=== PATIENT | female | born 1945 | race Caucasian/White ===

== ENCOUNTER 2016-11-10 10:36 | Emergency (ER) | payer OTHER ==
[2016-11-10 10:51] VITALS: BP 179/89; PULSE 61; TEMP 98.9; BMI 32.1
--- NOTE | 2016-11-10 11:47 | PDOC ---
History of Present Illness - General Chief Complaint: Injury Stated Complaint: FALL, RT ARM PAIN Time Seen by Provider: 11/10/16 11:38 History Source: Patient - History of Present Illness Initial Comments: 11/10/16 12:19 Chief complaint: Arm injury Patient is 70-year-old female with a history of elevated cholesterol who states she tripped and fell on a bus on Wednesday. She has pain mostly to the right upper arm. When asked further she states she has pain to the right ring finger. No LOC , patient felt fine prior to tripping and is not on any blood thinners. Patient is ambulatory without difficulty GENERAL/CONSTITUTIONAL: No fever, weakness. dizziness HEAD, EYES, EARS, NOSE AND THROAT: No change in vision. No ear pain or discharge. No sore throat. CARDIOVASCULAR: No chest pain RESPIRATORY: No shortness of breath or cough GASTROINTESTINAL: No pain, nausea, vomiting, diarrhea or constipation GENITOURINARY: No dysuria MUSCULOSKELETAL: No neck or back pain, + arm and finger SKIN: No rash NEUROLOGIC: No headache, vertigo, loss of consciousness, or loss of sensation. GENERAL: The patient is awake, alert, and fully oriented, in no acute distress. HEAD: Normal with no signs of trauma. EYES: Pupils equal, round and reactive to light, sclera anicteric, conjunctiva clear. ENT: pharynx: no erythema, no exudate, uvula midline NECK: supple CHEST: clear, nontender, rr ABD: soft, nontender With mild lumbar and left posterior pelvis tenderness without signs of ecchymosis swelling or wounds EXTREMITIES: Right clavicle shoulder and upper humerus with tenderness, healing ecchymosis to the upper humeral area without deformity, no pain to the elbow and distally or signs of injury, neurovascular intact. Left upper extremity negative exam except for right ring finger which has mild tenderness but has good range of motion and neurovascular intact. Lower extremities, Normal range of motion, no edema. NEUROLOGICAL: Normal speech, normal gait. SKIN: Warm, Dry Past History - Past Medical History Allergies/Adverse Reactions: Allergies Allergy/AdvReac Type Severity Reaction Status Date / Time No Known Allergies Allergy Verified 11/10/16 10:51 Home Medications: Ambulatory Orders Atorvastatin Ca [Lipitor] 10 mg PO HS 11/16/14 Cyclobenzaprine HCl [Flexeril] 5 mg PO HS 11/16/14 Ciprofloxacin [Cipro -] 500 mg PO Q12H #20 tablet 03/18/16 Neomycin/Polymyxn/Hc [Cortisporin Otic Suspenstion -] 4 drop .ROUTE Q6HPO #160 drops 03/18/16 Omeprazole [Prilosec] 40 mg PO HS 03/18/16 Paroxetine HCl 20 mg PO HS 03/18/16 GI Disorders: Yes (GERD) Hypercholesterolemia: Yes - Surgical History Cholecystectomy: Yes - Psycho/Social/Smoking Cessation Hx Anxiety: No Suicidal Ideation: No Smoking History: Never smoked Have you smoked in the past 12 months: No Hx Alcohol Use: No Drug/Substance Use Hx: No Substance Use Type: None *Physical Exam - Vital Signs Last Vital Signs Temp Pulse Resp BP Pulse Ox 98.9 F 61 16 179/89 97 11/10/16 10:43 11/10/16 10:43 11/10/16 10:43 11/10/16 10:43 11/10/16 10:43 Procedures - Splinting Pre-Proc Neuro Vasc Exam: normal Post-Proc Neuro Vasc Exam: normal Sling: Yes Medical Decision Making - Medical Decision Making 11/10/16 13:48 pt who tripped and fell 2 days ago, left ring finger and lower back. Patient ambulatory, patient was given Motrin and had x-rays done which showed a possible fracture to the greater tuberosity of the right humerus. Patient will be placed in a sling, discuss pain management, and discussed with patient and family the need for orthopedic follow-up within a week. *DC/Admit/Observation/Transfer Diagnosis at time of Disposition: Right humeral fracture Qualifiers: Encounter type: initial encounter Humerus Location: proximal Fracture type: closed Fracture morphology: unspecified fracture morphology Fracture alignment: nondisplaced - Discharge Dispostion Disposition: HOME Condition at time of disposition: Stable Admit: No - Referrals Referrals: Jovita Petersen MD [Primary Care Provider] - Hang Sloan MD [Staff Physician] - - Patient Instructions Printed Discharge Instructions: How to Use a Sling Additional Instructions: You need to see the orthopedist, call today to make an appointment for later this week Elevate, wear sling You can apply ice for 20 minutes every 2 hours for the next 2 days Motrin 600 mg every 6 hours for pain.
[2016-11-10] MEDS ORDERED: IBUPROFEN 600 MG TABLET (FP) PO ONE ×2 (12:02→12:13)
== END 2016-11-10 14:07 | disposition home or self-care (01) ==
LOC: JERFT 10:36
DX: S42.254A Nondisplaced fracture of greater tuberosity of right humerus, initial encounter for closed fracture (principal); V79.88XA Bus occupant (driver) (passenger) injured in other specified transport accidents, initial encounter; Y93.89 Activity, other specified; Y92.414 Local residential or business street as the place of occurrence of the external cause
CPT/HCPCS: 72100-TC; 72170-TC; 73000-TC-RT; 73030-TC-RT; 73060-TC-RT; 73140-TC-LT; 99281-25